=== PATIENT | female | born 1945 | race Caucasian/White ===

== ENCOUNTER 2017-02-11 06:46 | Outpatient (CLI) | payer MEDICARE, OTHER | END 2017-02-11 06:47 | disposition EMS.NT | LOC: EMS 06:46 | PROVIDERS: ATTEND Surgery | DX: F41.9 Anxiety disorder, unspecified (principal); R11.0 Nausea ==

== ENCOUNTER 2017-02-11 10:56 | Emergency (ER) | payer MEDICARE, OTHER ==
[2017-02-11 12:03] LABS: BILIRUBIN,URINE NEGATIVE (NEGATIVE); PH,URINE 7.5 PH (5.0-7.5)
[2017-02-11 12:19] LABS: BASOPHILS % (AUTO) 0.4 %; EOSINOPHILS % (AUTO) 0.3 %; HCT - HEMATOCRIT 38.2 % (37.0-47.0); HGB - HEMOGLOBIN 12.8 g/dL (12.0-16.0); LYMPHOCYTES % (AUTO) 10.7 %; MEAN CORPUSCULAR HEMOGLOBIN 31.8 pg (27.0-31.0); MEAN CORPUSCULAR HGB CONC 33.6 g/dL (32.0-36.0); MEAN CORPUSCULAR VOLUME 94.6 fL (81.0-99.0); MEAN PLATELET VOLUME 6.9 fL (7.9-10.8); MONOCYTES # (AUTO) 0.4 10^3/uL (0.0-1.0); MONOCYTES % (AUTO) 4.5 %; NEUTROPHILS # (AUTO) 8.1 10^3/uL (1.5-6.6); NEUTROPHILS % (AUTO) 84.1 %; RED BLOOD COUNT 4.04 10^6/uL (4.20-5.40); RED CELL DISTRIBUTION WIDTH 12.5 % (12.0-15.0); UNCORRECTED WHITE BLOOD COUNT 9.6 x10^3/uL; WHITE BLOOD COUNT 9.6 x10^3/uL (4.8-10.8)
[2017-02-11 12:23] LABS: UA w/ MICROSCOPIC CHARGE YES; WBC,URINE 0-3 /HPF (0-5)
[2017-02-11 12:26] LABS: ALBUMIN/GLOBULIN RATIO 1.6 (1.0-2.2); BILIRUBIN,TOTAL 0.9 mg/dL (0.2-1.0); CALCIUM 8.9 mg/dL (8.5-10.3); CREATININE 0.6 mg/dL (0.4-1.0); POTASSIUM 3.8 mmol/L (3.5-5.0); TOTAL PROTEIN 7.5 g/dL (6.7-8.2)
[2017-02-11 12:59] VITALS: BP 133/66
[2017-02-11] MEDS ORDERED: LORazepam 0.5 MG TABLET PO STA (13:04)
[2017-02-11] MEDS ORDERED: LORazepam 0.5 MG TABLET ONE (13:09)
--- NOTE | 2017-02-11 13:33 | ED Physician Documentation ---
History of Present Illness - Stated complaint Stated Complaint: ANXIETY/SHAKING/SYNCOPE - Chief complaint Chief Complaint: General - History obtained from History obtained from: Patient, Family, EMS - Additonal information Additional information: The patient is a 71-year-old female who is visiting here from [place], and arrives via private auto, complaining of anxiety, poor sleep, and tingling. She was recently prescribed Cymbalta by her primary physician, and took 30 mg last night. She awoke during the night, and was not able to get back to sleep. She had associated "upset stomach" with nausea. She denies vomiting, chest pain, fever. Medics evaluated her prior to arrival, and she complained of lightheadedness and tingling in her face and fingers. She was noted to have rapid breathing. She subsequently presented to the emergency department, accompanied by family member. She denies history of similar symptoms in the past, and thinks this may be related to Cymbalta. Review of Systems Constitutional: reports: Chills, Fatigue. denies: Fever Eyes: denies: Decreased vision Ears: denies: Tinnitus/ringing Nose: denies: Congestion Throat: denies: Sore throat Cardiac: denies: Chest pain / pressure Respiratory: denies: Cough GI: reports: Abdominal Pain (Epigastric discomfort earlier, but not currently.) , Nausea. denies: Vomiting : denies: Dysuria Skin: denies: Rash Musculoskeletal: denies: Back pain, Extremity swelling Neurologic: denies: Focal weakness, Numbness, Headache PD PAST MEDICAL HISTORY - Past Medical History Past Medical History: Yes Psych: Anxiety Other Past Medical History: breast cancer, hypothyroid - Past Surgical History Past Surgical History: Yes HEENT: Tonsil/Adenoidectomy - Present Medications Home Medications: Ambulatory Orders Medication Instructions Recorded Confirmed Alendronate [Fosamax] 70 mg PO DAILY 02/11/17 02/11/17 Cyclobenzaprine [Flexeril] 5 mg PO DAILY 02/11/17 02/11/17 LORazepam [Ativan] 0.5 mg PO HS PRN #12 tablet 02/11/17 Levothyroxine [Synthroid] 75 mcg PO DAILY 02/11/17 02/11/17 - Allergies Allergies/Adverse Reactions: Allergies Allergy/AdvReac Type Severity Reaction Status Date / Time No Known Drug Allergies Allergy Verified 02/11/17 11:08 - Social History Does the pt smoke?: No Smoking Status: Never smoker Does the pt drink ETOH?: No Does the pt have substance abuse?: No PD ED PE NORMAL - Vitals Vital signs reviewed: Yes (normal) - General General: Alert and oriented X 3, Well developed/nourished, Other (Appears somewhat fatigued.) - HEENT HEENT: Atraumatic, PERRL, EOMI, Ears normal, Moist mucous membranes, Pharynx benign - Neck Neck: Supple, no meningeal sign, No adenopathy, No JVD - Cardiac Cardiac: RRR, No murmur - Respiratory Respiratory: No respiratory distress, Clear bilaterally - Abdomen Abdomen: Soft, Non tender, No organomegaly - Back Back: No CVA TTP - Derm Derm: No rash - Extremities Extremities: No edema, No calf tenderness / cord - Neuro Neuro: Alert and oriented X 3, No motor deficit, Normal speech Results - Vitals Vitals: Oxygen O2 Source Room air - Labs Labs: Laboratory Tests 02/11/17 02/11/17 02/11/17 11:47 12:08 12:08 WBC 9.6 RBC 4.04 L Hgb 12.8 Hct 38.2 MCV 94.6 MCH 31.8 H MCHC 33.6 RDW 12.5 Plt Count 328 MPV 6.9 L Neut # 8.1 H Lymph # 1.0 L [place] # 0.4 Eos # 0.0 Baso # 0.0 Absolute Nucleated RBC 0.00 Nucleated RBCs 0.0 Sodium 133 L Potassium 3.8 Chloride 98 L Carbon Dioxide 27 Anion Gap 8.0 BUN 13 Creatinine 0.6 Estimated GFR (MDRD) 99 Glucose 105 H Calcium 8.9 Total Bilirubin 0.9 AST 20 ALT 15 Alkaline Phosphatase 51 Total Protein 7.5 Albumin 4.6 Globulin 2.9 Albumin/Globulin Ratio 1.6 Lipase 65 H Urine Color YELLOW Urine Clarity CLOUDY Urine pH 7.5 Ur Specific [place] 1.010 Urine Protein NEGATIVE Urine Glucose (UA) NEGATIVE Urine Ketones NEGATIVE Urine Occult Blood NEGATIVE Urine Nitrite NEGATIVE Urine Bilirubin NEGATIVE Urine Urobilinogen 0.2 (NORMAL) Ur Leukocyte Esterase NEGATIVE Urine RBC None Seen Urine WBC 0-3 Ur Squamous Epith Cells RARE Squamous Amorphous Sediment Marked Urine Bacteria None Seen Ur Microscopic Review INDICATED PD MEDICAL DECISION MAKING - ED course Complexity details: reviewed results, re-evaluated patient, considered differential, d/w patient, d/w family ED course: The patient's presentation is most consistent with anxiety disorder, with hyperventilation syndrome. 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 CBC, chemistry panel, and urinalysis are all unremarkable. Treatment in the emergency department included administration of lorazepam 0.5 mg orally. The patient subsequently reports feeling much improved. She is being discharged with a prescription for lorazepam, 12 tablets. I discussed with her and her sister the diagnosis, symptomatic treatment and outpatient follow-up, as well as potentially worrisome signs or symptoms that should prompt reevaluation in the emergency department. Departure - Departure Disposition: 01 Home, Self Care Clinical Impression: Anxiety and depression, Hyperventilation syndrome Sleeplessness Qualifiers: Insomnia type: unspecified Qualified Code(s): G47.00 - Insomnia, unspecified Condition: Stable Instructions: ED Stress React, ED Insomnia Prescriptions: LORazepam [Ativan] 0.5 mg PO HS PRN #12 tablet PRN Reason: Insomnia Comments: Drink plenty of fluids. You can use Benadryl, 25-50 mg at night if needed for sleeplessness. You can use Ativan as prescribed if recurrent anxiety. Follow-up with your primary physician within one to two weeks. Return to the emergency department if you develop increasing anxiety, shortness of breath, or otherwise worsening symptoms. Discharge Date/Time: 02/11/17 13:43
== END 2017-02-11 13:43 | disposition home or self-care (01) ==
LOC: ED 10:56
DX: F41.8 Other specified anxiety disorders (principal); F45.8 Other somatoform disorders; G47.00 Insomnia, unspecified; E03.9 Hypothyroidism, unspecified; Z85.3 Personal history of malignant neoplasm of breast
CPT/HCPCS: 36415; 80053; 81001; 83690; 85025; 99283; 99284; A9270; 81003